=== PATIENT | male | born 1945 | race Caucasian/White ===

== ENCOUNTER 2018-03-17 13:46 | Emergency (ER) | payer MEDICARE, OTHER ==
[~2018-03-17] VITALS: Ht 170.2 cm; Wt 75.0 kg
[2018-03-17 13:50] VITALS: BP 147/78; PULSE 61; RESP 16; TEMP 98.2; O2SAT 96
[2018-03-17] MEDS ORDERED: LOSA50TA PO (14:13)
[2018-03-17] MEDS ORDERED: ASPI-183 PO (14:13)
[2018-03-17] MEDS ORDERED: ROSU40 PO (14:13)
[2018-03-17] MEDS ORDERED: ADVA250A INH (14:13)
[2018-03-17] MEDS ORDERED: METO25TA3 PO (14:13)
--- NOTE | 2018-03-17 14:14 | PD ---
HPI . Epistaxis Chief Complaint: Nosebleed Time Seen by Provider: 14:05 Travel History International Travel<30 days: No Contact w/Intl Traveler<30days: No Traveled to known affect area: No History of Present Illness HPI This patient presents with chief complaint of epistaxis. Onset 6 days ago. It has been coming and going. It is acutely worse today. Patient states that he had been taking aspirin but stopped that 6 days ago when the bleeding started. Other than aspirin, he is unaware of any modifying factors. PFSH Past Medical History Cardiovascular Problems: Yes High Cholesterol: Yes COPD: Yes Diabetes: No Hypertension: Yes Tetanus Vaccination: > 5 Years Influenza Vaccination: Yes Past Surgical History Abdominal Surgery: Yes (HERNIA) Coronary Artery Bypass Graft: Yes Other Surgery: Yes (NASAL SURGERY) Social History Alcohol Use: No Tobacco Use: No Allergies-Medications (Allergen,Severity, Reaction): Coded Allergies: No Known Allergies (Verified Allergy, Unknown, 03/17/18) Reported Meds & Prescriptions Reported Meds & Active Scripts Active Reported Crestor (Rosuvastatin Calcium) 40 Mg Tab 40 Mg PO DAILY Metoprolol Tartrate 25 Mg Tab 25 Mg PO DAILY Losartan (Losartan Potassium) 50 Mg Tab 50 Mg PO DAILY Advair Diskus Inh (Fluticasone-Salmeterol Inh) 250-50 Mcg/Blist Aer 1 Puff INH DAILY Rinse mouth after use. Aspirin 325 Mg Tab 325 Mg PO DAILY Review of Systems Except as stated in HPI: all other systems reviewed are Neg Physical Exam Narrative GENERAL: Awake and alert and in no acute distress. SKIN: Warm and dry. Normal color and turgor. HEAD: Normocephalic/atraumatic. EYES: Pupils are equal. Extraocular movements are intact. ENT: Active bleeding from both nostrils. NECK: Normal range of motion. Supple. CARDIOVASCULAR: Regular rate and rhythm. RESPIRATORY: Nonlabored respirations. Normal sats. MUSCULOSKELETAL: Atraumatic. Normal muscle tone. NEUROLOGICAL: A and O 3. Nonfocal. PSYCHIATRIC: Appropriate mood and affect. Data Data Last Documented VS Vital Signs Date Time Temp Pulse Resp B/P (MAP) Pulse Ox O2 Delivery O2 Flow Rate FiO2 03/17/18 13:50 98.2 61 16 147/78 (101) 96 Orders Orders Tranexamic Acid Inj (Cyklokapron Inj) (03/17/18 14:15) [facility] Medical Decision Making Medical Screen Exam Complete: Yes Emergency Medical Condition: Yes Differential Diagnosis Differential diagnosis includes but is not limited to epistaxis due to an upper respiratory infection, coagulopathy, local trauma, nasal fracture Narrative Course This patient presents with epistaxis. He is bleeding from both nostrils. I have ordered TXA and plan to pack both nostrils with Murocel sponges soaked in TXA. Procedures Procedure Narrative NASAL PACKING: Both nares were Merocel sponges. TXA was then dripped onto the sponges. Adequate control of bleeding was obtained. The patient was observed without recurrence of bleeding. Patient tolerated procedure well. Diagnosis Primary Impression: Epistaxis Patient Instructions: Epistaxis (DC), General Instructions Additional Instructions: Follow-up in 2 days for removal of the nasal packing Disposition: 01 DISCHARGE HOME Condition: Stable Cait Zambrano MD Mar 17, 2018 14:14
[2018-03-17] MEDS ORDERED: TRANEXAMIC ACID INJ 1,000 MG/10 ML AMP TOPICAL ONE (14:15)
== END 2018-03-17 16:34 | disposition home or self-care (01) ==
LOC: NEPC 13:46
DX: R04.0 Epistaxis (principal); E78.00 Pure hypercholesterolemia, unspecified; J44.9 Chronic obstructive pulmonary disease, unspecified; I10 Essential (primary) hypertension; Z95.1 Presence of aortocoronary bypass graft
CPT/HCPCS: 30901

== ENCOUNTER 2018-03-19 09:26 | Emergency (ER) | payer MEDICARE, OTHER ==
[~2018-03-19] VITALS: Ht 170.2 cm; Wt 75.0 kg
[~2018-03-19 09:26] MED LIST: ADVA250A INH; ASPI-183 PO; LOSA50TA PO; METO25TA3 PO; ROSU40 PO
[2018-03-19 09:28] VITALS: BP 145/76; PULSE 67; RESP 16; TEMP 97.8; O2SAT 96
--- NOTE | 2018-03-19 10:04 | PD ---
HPI Chief Complaint: ENT Complaint Time Seen by Provider: 09:53 Travel History International Travel<30 days: No Contact w/Intl Traveler<30days: No Traveled to known affect area: No History of Present Illness HPI 22-year-old male previously seen on 17 March, with epistaxis, requiring placement of packing to both nostrils. He is here for recheck and packing removal. Patient states he continues to have a small amount of bleeding, but no pain or fever. Patient states he stopped his aspirin several days ago. He has no other acute complaints. He is packing to both nostrils. He has no known drug allergies PFS Past Medical History Cardiovascular Problems: Yes High Cholesterol: Yes COPD: Yes Diabetes: No Hypertension: Yes Respiratory: Yes Tetanus Vaccination: > 5 Years Past Surgical History Abdominal Surgery: Yes (HERNIA) Coronary Artery Bypass Graft: Yes Other Surgery: Yes (NASAL SURGERY 2016) Social History Alcohol Use: No Tobacco Use: No Substance Use: No Allergies-Medications (Allergen,Severity, Reaction): Coded Allergies: No Known Allergies (Verified Allergy, Unknown, 03/19/18) Reported Meds & Prescriptions Reported Meds & Active Scripts Active Reported Crestor (Rosuvastatin Calcium) 40 Mg Tab 40 Mg PO DAILY Metoprolol Tartrate 25 Mg Tab 25 Mg PO DAILY Losartan (Losartan Potassium) 50 Mg Tab 50 Mg PO DAILY Advair Diskus Inh (Fluticasone-Salmeterol Inh) 250-50 Mcg/Blist Aer 1 Puff INH DAILY Rinse mouth after use. Aspirin 325 Mg Tab 325 Mg PO DAILY Review of Systems Except as stated in HPI: all other systems reviewed are Neg General / Constitutional: No: Fever Eyes: No: Visual changes HENT: Positive: Nosebleed (See history of present), No: Headaches, Vertigo, Lightheadedness, Sore Throat, Rhinitis, Rhinorrhea, Congestion, Ear Discharge Cardiovascular: No: Chest Pain or Discomfort Respiratory: No: Shortness of Breath Gastrointestinal: No: Abdominal Pain Genitourinary: No: Dysuria Musculoskeletal: No: Pain Skin: No Rash Neurologic: No: Weakness Psychiatric: No: Depression Endocrine: No: Polydipsia Hematologic/Lymphatic: No: Easy Bruising Physical Exam Narrative GENERAL: Patient appears in no acute distress. SKIN: Warm and dry. Normal color. Normal turgor HEAD: Atraumatic. Normocephalic. No sinus tenderness to palpation or percussion EYES: Pupils equal and round. No scleral icterus. No injection or drainage. ENT: Minimal nasal bleeding noted without discharge. Mucous membranes pink and moist. Pharynx is clear. No signs of postnasal bleeding. TMs are clear. Airways patent NECK: Trachea midline. Supple and nontender CARDIOVASCULAR: Regular rate and rhythm. RESPIRATORY: No accessory muscle use. Clear to auscultation. Breath sounds equal bilaterally. GASTROINTESTINAL: Abdomen soft, non-tender, nondistended. Hepatic and splenic margins not palpable. MUSCULOSKELETAL: Extremities without clubbing, cyanosis, or edema. No obvious deformities. NEUROLOGICAL: Awake and alert. No obvious cranial nerve deficits. Motor grossly within normal limits. Five out of 5 muscle strength in the arms and legs. Normal speech. PSYCHIATRIC: Appropriate mood and affect; insight and judgment normal. Data Data Last Documented VS Vital Signs Date Time Temp Pulse Resp B/P (MAP) Pulse Ox O2 Delivery O2 Flow Rate FiO2 03/19/18 09:28 97.8 67 16 145/76 (99) 96 MDM Medical Decision Making Medical Screen Exam Complete: Yes Emergency Medical Condition: Yes Medical Record Reviewed: Yes Differential Diagnosis Epistaxis. Packing check. Nasal congestion Narrative Course Is felt prudent to leave the packing in for an additional 2 days. Patient is started on azithromycin 500 mg daily for the next 3 days. Patient is to return in 2 days for packing removal. Patient can return sooner with any worsening symptoms as needed. Diagnosis Primary Impression: Epistaxis Patient Instructions: General Instructions Additional Instructions: Is felt prudent to leave the packing in for an additional 2 days. Patient is started on azithromycin 500 mg daily for the next 3 days. Patient is to return in 2 days for packing removal. Patient can return sooner with any worsening symptoms as needed. Med/Other Pt SpecificInfo: Prescription(s) given Disposition: DISCHARGE HOME Condition: Stable Flavio Vargas Mar 19, 2018 10:04
[2018-03-19] MEDS ORDERED: AZIT500T2 PO (10:05)
== END 2018-03-19 11:40 | disposition home or self-care (01) ==
LOC: NEPD 09:26
DX: R04.0 Epistaxis (principal); E78.00 Pure hypercholesterolemia, unspecified; I10 Essential (primary) hypertension; J44.9 Chronic obstructive pulmonary disease, unspecified; Z95.1 Presence of aortocoronary bypass graft
CPT/HCPCS: 99281